=== PATIENT | male | born 1985 | race Caucasian/White ===

== ENCOUNTER 2017-05-03 19:15 | Emergency (ER) | payer SELFPAY ==
--- NOTE | 2017-05-03 21:40 | ED CLINICAL REPORT ---
Clinical Report - Physicians/Mid Levels Located Within [facility] [address] [place] [address] 05/03/2017 19:16 Patient: JENNYFER DE LOS SANTOS Time Seen: 19:23; initial patient contact. Arrived- By private vehicle. Historian- patient. HISTORY OF PRESENT ILLNESS Chief Complaint: ACCIDENTAL INGESTION. This occurred about 2 weeks ago. (Has been taking double his dose of [place] accidently). No toxic symptoms present. No toxic symptoms present. Single drug taken. The symptoms are described as mild. Has not been depressed or upset. No anger, suicidal thoughts, hallucinations or delusions. Not confused or paranoid. Similar symptoms previously: None. Recent medical care: Not recently seen/assessed. REVIEW OF SYSTEMS No headache, dizziness, abdominal pain, vomiting or diarrhea. No decreased vision, double vision or headache. All systems otherwise negative, except as recorded above. PAST HISTORY ( Schizophrenia. Psoriasis.). SOCIAL HISTORY Smoker- current status unknown (electronic cigarrette). History of drug use: marijuana. No alcohol use. Has social support. Has place to stay. ADDITIONAL NOTES The nursing notes have been reviewed. PHYSICAL EXAM Vital Signs: 05/03/2017 19:23 BP: 135/75. HR: 85. RR: 16. O2 saturation: 100%. Temp: 98.1 F. Pain level now: 0/10. Have been reviewed as normal. Appearance: Alert. Oriented X3. No acute distress. ENT: Normal ENT inspection. CVS: Normal heart rate and rhythm. Heart sounds normal. Respiratory: No respiratory distress. Breath sounds normal. Skin: Skin warm and dry. Normal skin color. No rash. Neuro: Alert. Oriented X 3. Mood/affect normal. Speech normal. LABS, X-RAYS, AND EKG Laboratory Tests: UA-Culture if indicated: (ISAAC: 05/03/2017 19:45) ( MsgRcvd 05/03/2017 20:31) Final results Test Result Flag Units (Reference) URINE COLOR YELLOW URINE APPEARANCE CLEAR URINE GLUCOSE NEGATIVE (NEGATIVE) URINE BILIRUBIN NEGATIVE (NEGATIVE) URINE KETONE NEGATIVE (NEGATIVE) URINE SPECIFIC GRAVITY 1.015 (1.010-1.030) URINE PH 7.0 (5.0-8.0) URINE PROTEIN NEGATIVE (NEGATIVE) URINE UROBILINOGEN 0.2 EU/dL (0.2-1.0) URINE NITRITE NEGATIVE (NEGATIVE) URINE BLOOD NEGATIVE (NEGATIVE) URINE [place] ESTERASE NEGATIVE (NEGATIVE) URINE RBC NONE SEEN rbc/hpf (0-1) URINE WBC RARE wbc/hpf (0-1) URINE EPITHELIAL CELLS RARE EPI/hpf (0-5) URINE BACTERIA NONE SEEN (NONE SEEN) URINE COMMENT CULT NOT INDICATED URINE CULTURES ARE SET-UP BASED ON THE FOLLOWING CRITERIA:POSITIVE NITRITEPOSITIVE LEUKOCYTE ESTERASEGREATER THAN 10 WHITE BLOOD CELLSMODERATE (2+) OR GREATER BACTERIA CBC w Diff: (ISAAC: 05/03/2017 19:50) ( [facility] 05/03/2017 20:00) Final results Test Result Flag Units (Reference) WHITE BLOOD COUNT 13.2 H K/uL (4.5-11.5) RED BLOOD COUNT 4.58 M/uL (4.50-5.90) HEMOGLOBIN 14.3 gm/dL (13.5-17.5) HEMATOCRIT 41.8 % (41.0-53.0) MEAN CELL VOLUME 91 fL (80-100) MEAN CORPUSCULAR HGB 31 pg (26-34) MEAN CORPUSCULAR HGB CONC 34 g/dL (31-37) RED CELL DISTRIBUTION WIDTH 12.1 % (11.6-14.8) PLATELET COUNT 246 K/uL (150-400) LYMPH % 17.9 L % (25-40) MONO % 5.6 % (3-14) GRANULOCYTE % 76.5 Urine Drug Screen: (ISAAC: 05/03/2017 19:45) ( [facility] 05/03/2017 20:24) Final results Test Result Flag Units (Reference) AMPHETAMINE/METHAMPHETAMINE NEGATIVE (NEGATIVE) BARBITURATE NEGATIVE (NEGATIVE) BENZODIAZEPINE NEGATIVE (NEGATIVE) CANNABINOID NEGATIVE (NEGATIVE) COCAINE NEGATIVE (NEGATIVE) ECSTASY POSITIVE H (NEGATIVE) METHADONE NEGATIVE (NEGATIVE) OPIATE NEGATIVE (NEGATIVE) The urine drug screen is a qualitative screening test fordrug overdose and abuse. All screen results should beconsidered as presumptive.Drugs screened for are as follows:BenzodiazepinesCocaineAmphetamines/MetamphetaminesTHC (Tetrahydrocannabinol)OpiatesBarbituratesEcstasyMethadonePositive results are unconfirmed. For confirmation, notifythe lab for the specimen to be sent to the reference lab.All confirmations must be performed by a differentmethodology.The ingestion of natural herbal and plant productscontaining Ephedra/Ephedra metabolites can produce in urineone or more substances capable of cross reacting withamphetamine/methamphetamine immunoassays. These testsprovide a preliminary result only. A more specificalternative chemical method must be used to obtain aconfirmed analytical result. [place] Level: (ISAAC: 05/03/2017 19:50) ( [facility] 05/03/2017 20:19) Final results Test Result Flag Units (Reference) LITHIUM 0.9 mmol/L (0.5-1.5) CMP: (ISAAC: 05/03/2017 19:50) ( CagRcvd 05/03/2017 20:34) Final results Test Result Flag Units (Reference) GLUCOSE 109 mg/dL (70-110) BUN 11 mg/dL (7-18) CREATININE 1.1 mg/dL (0.6-1.3) Estimated GFR >60 mL/min Estimated GFR- >60 mL/min Note: Persistent reduction over 3 months in eGFR<60 mL/min/1.73 m2 defines CKD. Patients with eGFR values>=60 mL/min/1.73 m2 may also have CKD if evidence ofpersistent proteinuria. Additional information may be foundat www.kidney.org. SODIUM 140 mmol/L (136-145) POTASSIUM 3.8 mmol/L (3.5-5.1) CHLORIDE 105 mmol/L (98-107) CARBON DIOXIDE 26 mmol/L (21-32) CALCIUM 8.9 mg/dL (8.5-10.1) TOTAL PROTEIN 7.0 g/dL (6.4-8.2) ALBUMIN 3.8 g/dL (3.3-5.0) BILIRUBIN, TOTAL 0.4 mg/dL (0.0-1.0) ALKALINE PHOSPHATASE 63 U/L (46-116) AST (SGOT) 23 U/L (15-37) ALT (SGPT) 49 U/L (12-78) . PROGRESS AND PROCEDURES Disposition: Discharged home in good and improved condition. Condition: good. CLINICAL IMPRESSION Chronic bipolar disorder (With therapeutic [place] level). INSTRUCTIONS Your Current Medications: CONTINUE TAKING THE FOLLOWING MEDICATIONS: BuPROPion HCl Oral. [place] Carbonate ER Oral. OLANZapine Oral. TraZODone HCl Oral. Follow-up: Follow up with your doctor tomorrow. Call for an appointment. Screening today revealed the patient's blood pressure to be in the hypertensive range. The patient should follow up with a primary care provider for blood pressure management. (Electronically signed by Fran Collins Dr. 05/05/2017 0:19)
--- NOTE | 2017-05-03 21:40 | ED NURSING NOTES ---
Clinical Report - Nurses [facility] [address] [place] [address] 05/03/2017 19:16 Patient: JENNYFER DE LOS SANTOS TRIAGE Triage time 19:23. Acuity: LEVEL 3. Chief Complaint: DRUG OVERDOSE (accidental). --19:34 Chevy Brady R.N. 19:23 05/03/17. BP: 135/75. HR: 85. RR: 16. O2 saturation: 100%. Temp: 98.1 F. Pain level now: 0/10. --19:34 Chevy Brady R.N. Weight: 81.6 kg. Height/Length: 69 inches. BMI: 26.6. --19:25 Chevy Brady R.N. Medications [place] Carbonate ER Oral. --19:30 Chevy Brady R.N. BuPROPion HCl Oral. --19:30 Chevy Brady R.N. TraZODone HCl Oral. --19:30 Chevy Brady R.N. OLANZapine Oral. --19:31 Chevy Brady R.N. Medication/allergy information source: the patient. --19:34 Chevy Brady R.N. Allergies No Known Drug Allergy. --19:31 Chevy Brady R.N. History Arrived by private vehicle. Historian: patient. Accompanied by brother. ( Has been taking 2,400 mg of [place] daily in the last 2 weeks as he got confused as when he was [facility] custody he was being given 2 tablets of [place] 2 x day which he think was 300 mg capsules. Noticed increasing fatigued and tired and sleepy.). This occurred 2 weeks. Treatment CAUSTIC STRENGTH INSPECTOR: None. SURGERY HX: No history of previous surgery. SOCIAL HX: Smoker- current status unknown (electronic cigarrettes). History of occasional drug use: marijuana. --19:34 Chevy Brady R.N. PROBLEMS: Schizophrenia. Psoriasis. --19:32 Chevy Brady R.N. Interventions ID band on patient. To room. --19:34 Chevy Brady R.N. PHYSICAL ASSESSMENT Ambulatory to room. GENERAL / NEURO / PSYCH: Alert. Oriented X 4. Appears in no acute distress. Patient appears calm and cooperative. Speech within normal limits. RESPIRATORY: Respirations not labored. Breath sounds within normal limits. CVS: Normal sinus rhythm noted. Capillary refill less than 2 seconds. GI / : Abdomen soft and nontender. Bowel sounds within normal limits. SKIN: Skin intact. Skin is warm and dry. Skin color is within normal limits. Affect appears within normal limits. --19:34 Chevy Brady R.N. NURSING PROGRESS NOTES Cardiac rhythm: normal sinus rhythm. Head of bed elevated. Patient identifiers checked. Call light placed in reach. Side rails up x 1. Bed placed in lowest position. Brakes of bed on. Patient ready for evaluation- ED physician notified. --19:35 Chevy Brady R.N. 19:50 05/03/2017 Site #1 started via IV in the right antecubital space with an 20g angiocath; one attempt. Blood drawn: rainbow set. Labeled in the presence of the patient and sent to the lab. Saline lock flushed with 10 mL saline. --19:50 Chevy Brady R.N. 19:51 05/03/2017 Started IV Fluids IV NS (Saline); bolus of 1000 mL over 1 hour(s) via site #1 via IV pump. Allergies verified and confirmed 5 rights. IV patency established. IV site checked: no pain, redness, or swelling. IV flushed thoroughly pre- and post-medication administration. --19:51 Chevy Brady R.N. Cardiac rhythm: normal sinus rhythm. The patient is calm and resting quietly. Overall patient status is the same- he states feels the same. GENERAL / NEURO / PSYCH: Patient is calm and cooperative. Alert. Oriented X 4. RESPIRATORY: No respiratory distress. GI / : No vomiting noted. SKIN: Skin is warm and dry. Skin color within normal limits. --20:12 Chevy Brady R.N. 20:11 05/03/17. BP: 129/75. HR: 78. RR: 14. O2 saturation: 96%. Pain level now: 0/10. --20:12 Chevy Brady R.N. 20:55 05/03/2017 IV Fluids IV NS Discontinued: bag #1 infused. Total amount infused: 1000 mL. IV patency established. IV site checked: no pain, redness, or swelling. IV flushed thoroughly. --20:55 Chevy Brady R.N. 21:02 05/03/17. BP: 142/72 (regular adult cuff) taken on the left arm, via an automated monitor, while lying. HR: 91. O2 saturation: 97% on room air. Temp: 98.9 F. --21:03 Candice Webster. DISPOSITION / DISCHARGE Cardiac rhythm not normal sinus rhythm. Condition at departure: improved. No learning barriers present. Discharge instructions provided and reviewed with the patient (brother). Reviewed medication(s) side effects, precautions, dosing and course information. Reviewed referral to a primary care physician for followup. Patient verbalized understanding. Written instructions provided in Romansh. Verbalized understanding (brother). The patient was discharged home and accompanied by family. He left the Emergency Department ambulatory and via private vehicle. Family member driving. --21:53 Chevy Brady R.N. 21:51 05/03/17. BP: 123/79. HR: 76. RR: 16. O2 saturation: 100%. Temp: 97.9 F. Pain level now: 0/10. --21:53 Chevy Brady R.N. Departure time: 21:53. --21:53 Chevy Brady R.N. Locked/Released at 05/03/2017 21:53 by Chevy Brady R.N.
--- NOTE | 2017-05-03 21:40 | ED ORDER SUMMARY ---
..... Patient: JENNYFER DE LOS SANTOS OrderSheet [facility] VisitID: [id number] [place] [address] 31y, M Registration Date/Time: 05/03/2017 ORDER SHEET Weight: 81.6 kg Allergies: No Known Drug Allergy GENERAL ORDERS: CBC w Diff Urgent (:05/03/2017 Jordon Issa) (Ack 19:27 Talhaa ER Tech1) (19:50 Massiel R.N.) CMP Urgent (:05/03/2017 Jordon Issa) (Ack 19:27 Cari ER Tech1) (19:50 Massiel R.N.) UA-Culture if indicated Urgent (:05/03/2017 Jordon Issa) (Ack 19:27 Cari ER Tech1) (19:50 Massiel R.N.) Urine Drug Screen Urgent (:05/03/2017 Jordon Issa) (Ack 19:27 EDVINurca ER Tech1) (19:50 Massiel R.N.) [place] Level Urgent (:05/03/2017 Jordon Issa) (Ack 19:27 Cari ER Tech1) (19:50 Massiel R.N.) MEDICATION ORDERS: IV FLUIDS: IV NS : initial bolus none -, then 1000 mL/hr for X1 (NOW) (:05/03/2017 Jordon Issa) (Ack 19:36 Massiel R.N.) (19:51 Massiel R.N.) ORDER SHEET NOTES: [Electronically signed by Chevy Brady R.N. (21:53 05/03/2017)] [Electronically signed by Fran Collins Dr. (00:19 05/05/2017)] [Electronically locked/signed by Chevy Brady R.N. (21:53 05/03/2017)]
--- NOTE | 2017-05-03 21:40 | ED ORDER SUMMARY ---
..... Patient: JENNYFER DE LOS SANTOS OrderSheet [facility] VisitID: [id number] [place] [address] 31y, M Registration Date/Time: 05/03/2017 ORDER SHEET Weight: 81.6 kg Allergies: No Known Drug Allergy GENERAL ORDERS: CBC w Diff Urgent (:05/03/2017 Jordon Issa) (Ack 19:27 Talhaa ER Tech1) (19:50 Massiel R.N.) CMP Urgent (:05/03/2017 Jordon Issa) (Ack 19:27 Cari ER Tech1) (19:50 Massiel R.N.) UA-Culture if indicated Urgent (:05/03/2017 Jordon Issa) (Ack 19:27 Cari ER Tech1) (19:50 Massiel R.N.) Urine Drug Screen Urgent (:05/03/2017 Jordon Issa) (Ack 19:27 EDVINurca ER Tech1) (19:50 Massiel R.N.) [place] Level Urgent (:05/03/2017 Jordon Issa) (Ack 19:27 Cari ER Tech1) (19:50 Massiel R.N.) MEDICATION ORDERS: IV FLUIDS: IV NS : initial bolus none -, then 1000 mL/hr for X1 (NOW) (:05/03/2017 Jordon Issa) (Ack 19:36 Massiel R.N.) (19:51 Massiel R.N.) ORDER SHEET NOTES: [Electronically signed by Chevy Brady R.N. (21:53 05/03/2017)] [Electronically signed by Fran Collins Dr. (00:19 05/05/2017)] [Electronically locked/signed by Chevy Brady R.N. (21:53 05/03/2017)]
--- NOTE | 2017-05-03 21:40 | ED NURSING NOTES ---
Clinical Report - Nurses [facility] [address] [place] [address] 05/03/2017 19:16 Patient: JENNYFER DE LOS SANTOS TRIAGE Triage time 19:23. Acuity: LEVEL 3. Chief Complaint: DRUG OVERDOSE (accidental). --19:34 Chevy Brady R.N. 19:23 05/03/17. BP: 135/75. HR: 85. RR: 16. O2 saturation: 100%. Temp: 98.1 F. Pain level now: 0/10. --19:34 Chevy Brady R.N. Weight: 81.6 kg. Height/Length: 69 inches. BMI: 26.6. --19:25 Chevy Brady R.N. Medications [place] Carbonate ER Oral. --19:30 Chevy Brady R.N. BuPROPion HCl Oral. --19:30 Chevy Brady R.N. TraZODone HCl Oral. --19:30 Chevy Brady R.N. OLANZapine Oral. --19:31 Chevy Brady R.N. Medication/allergy information source: the patient. --19:34 Chevy Brady R.N. Allergies No Known Drug Allergy. --19:31 Chevy Brady R.N. History Arrived by private vehicle. Historian: patient. Accompanied by brother. ( Has been taking 2,400 mg of [place] daily in the last 2 weeks as he got confused as when he was in [facility] custody he was being given 2 tablets of [place] 2 x day which he think was 300 mg capsules. Noticed increasing fatigued and tired and sleepy.). This occurred 2 weeks. Treatment FORM BUILDER: None. SURGERY HX: No history of previous surgery. SOCIAL HX: Smoker- current status unknown (electronic cigarrettes). History of occasional drug use: marijuana. --19:34 Chevy Brady R.N. PROBLEMS: Schizophrenia. Psoriasis. --19:32 Chevy Brady R.N. Interventions ID band on patient. To room. --19:34 Chevy Brady R.N. PHYSICAL ASSESSMENT Ambulatory to room. GENERAL / NEURO / PSYCH: Alert. Oriented X 4. Appears in no acute distress. Patient appears calm and cooperative. Speech within normal limits. RESPIRATORY: Respirations not labored. Breath sounds within normal limits. CVS: Normal sinus rhythm noted. Capillary refill less than 2 seconds. GI / : Abdomen soft and nontender. Bowel sounds within normal limits. SKIN: Skin intact. Skin is warm and dry. Skin color is within normal limits. Affect appears within normal limits. --19:34 Chevy Brady R.N. NURSING PROGRESS NOTES Cardiac rhythm: normal sinus rhythm. Head of bed elevated. Patient identifiers checked. Call light placed in reach. Side rails up x 1. Bed placed in lowest position. Brakes of bed on. Patient ready for evaluation- ED physician notified. --19:35 Chevy Brady R.N. 19:50 05/03/2017 Site #1 started via IV in the right antecubital space with an 20g angiocath; one attempt. Blood drawn: rainbow set. Labeled in the presence of the patient and sent to the lab. Saline lock flushed with 10 mL saline. --19:50 Chevy Brady R.N. 19:51 05/03/2017 Started IV Fluids IV NS (Saline); bolus of 1000 mL over 1 hour(s) via site #1 via IV pump. Allergies verified and confirmed 5 rights. IV patency established. IV site checked: no pain, redness, or swelling. IV flushed thoroughly pre- and post-medication administration. --19:51 Chevy Brady R.N. Cardiac rhythm: normal sinus rhythm. The patient is calm and resting quietly. Overall patient status is the same- he states feels the same. GENERAL / NEURO / PSYCH: Patient is calm and cooperative. Alert. Oriented X 4. RESPIRATORY: No respiratory distress. GI / : No vomiting noted. SKIN: Skin is warm and dry. Skin color within normal limits. --20:12 Cheyv Brady R.N. 20:11 05/03/17. BP: 129/75. HR: 78. RR: 14. O2 saturation: 96%. Pain level now: 0/10. --20:12 Chevy Brady R.N. 20:55 05/03/2017 IV Fluids IV NS Discontinued: bag #1 infused. Total amount infused: 1000 mL. IV patency established. IV site checked: no pain, redness, or swelling. IV flushed thoroughly. --20:55 Chevy Brady R.N. 21:02 05/03/17. BP: 142/72 (regular adult cuff) taken on the left arm, via an automated monitor, while lying. HR: 91. O2 saturation: 97% on room air. Temp: 98.9 F. --21:03 Candice Webster. DISPOSITION / DISCHARGE Cardiac rhythm not normal sinus rhythm. Condition at departure: improved. No learning barriers present. Discharge instructions provided and reviewed with the patient (brother). Reviewed medication(s) side effects, precautions, dosing and course information. Reviewed referral to a primary care physician for followup. Patient verbalized understanding. Written instructions provided in [place]. Verbalized understanding (brother). The patient was discharged home and accompanied by family. He left the Emergency Department ambulatory and via private vehicle. Family member driving. --21:53 Chevy Brady R.N. 21:51 05/03/17. BP: 123/79. HR: 76. RR: 16. O2 saturation: 100%. Temp: 97.9 F. Pain level now: 0/10. --21:53 Chevy Brady R.N. Departure time: 21:53. --21:53 Chevy Brady R.N. Locked/Released at 05/03/2017 21:53 by Chevy Brady R.N.
--- NOTE | 2017-05-03 21:40 | ED CLINICAL REPORT ---
Clinical Report - Physicians/Mid Levels [facility] [address] [place] [address] 05/03/2017 19:16 Patient: JENNYFER DE LOS SANTOS Time Seen: 19:23; initial patient contact. Arrived- By private vehicle. Historian- patient. HISTORY OF PRESENT ILLNESS Chief Complaint: ACCIDENTAL INGESTION. This occurred about 2 weeks ago. (Has been taking double his dose of [place] accidently). No toxic symptoms present. No toxic symptoms present. Single drug taken. The symptoms are described as mild. Has not been depressed or upset. No anger, suicidal thoughts, hallucinations or delusions. Not confused or paranoid. Similar symptoms previously: None. Recent medical care: Not recently seen/assessed. REVIEW OF SYSTEMS No headache, dizziness, abdominal pain, vomiting or diarrhea. No decreased vision, double vision or headache. All systems otherwise negative, except as recorded above. PAST HISTORY ( Schizophrenia. Psoriasis.). SOCIAL HISTORY Smoker- current status unknown (electronic cigarrette). History of drug use: marijuana. No alcohol use. Has social support. Has place to stay. ADDITIONAL NOTES The nursing notes have been reviewed. PHYSICAL EXAM Vital Signs: 05/03/2017 19:23 BP: 135/75. HR: 85. RR: 16. O2 saturation: 100%. Temp: 98.1 F. Pain level now: 0/10. Have been reviewed as normal. Appearance: Alert. Oriented X3. No acute distress. ENT: Normal ENT inspection. CVS: Normal heart rate and rhythm. Heart sounds normal. Respiratory: No respiratory distress. Breath sounds normal. Skin: Skin warm and dry. Normal skin color. No rash. Neuro: Alert. Oriented X 3. Mood/affect normal. Speech normal. LABS, X-RAYS, AND EKG Laboratory Tests: UA-Culture if indicated: (ISAAC: 05/03/2017 19:45) ( MsgRcvd 05/03/2017 20:31) Final results Test Result Flag Units (Reference) URINE COLOR YELLOW URINE APPEARANCE CLEAR URINE GLUCOSE NEGATIVE (NEGATIVE) URINE BILIRUBIN NEGATIVE (NEGATIVE) URINE KETONE NEGATIVE (NEGATIVE) URINE SPECIFIC GRAVITY 1.015 (1.010-1.030) URINE PH 7.0 (5.0-8.0) URINE PROTEIN NEGATIVE (NEGATIVE) URINE UROBILINOGEN 0.2 EU/dL (0.2-1.0) URINE NITRITE NEGATIVE (NEGATIVE) URINE BLOOD NEGATIVE (NEGATIVE) URINE [place] ESTERASE NEGATIVE (NEGATIVE) URINE RBC NONE SEEN rbc/hpf (0-1) URINE WBC RARE wbc/hpf (0-1) URINE EPITHELIAL CELLS RARE EPI/hpf (0-5) URINE BACTERIA NONE SEEN (NONE SEEN) URINE COMMENT CULT NOT INDICATED URINE CULTURES ARE SET-UP BASED ON THE FOLLOWING CRITERIA:POSITIVE NITRITEPOSITIVE LEUKOCYTE ESTERASEGREATER THAN 10 WHITE BLOOD CELLSMODERATE (2+) OR GREATER BACTERIA CBC w Diff: (ISAAC: 05/03/2017 19:50) ( [facility] 05/03/2017 20:00) Final results Test Result Flag Units (Reference) WHITE BLOOD COUNT 13.2 H K/uL (4.5-11.5) RED BLOOD COUNT 4.58 M/uL (4.50-5.90) HEMOGLOBIN 14.3 gm/dL (13.5-17.5) HEMATOCRIT 41.8 % (41.0-53.0) MEAN CELL VOLUME 91 fL (80-100) MEAN CORPUSCULAR HGB 31 pg (26-34) MEAN CORPUSCULAR HGB CONC 34 g/dL (31-37) RED CELL DISTRIBUTION WIDTH 12.1 % (11.6-14.8) PLATELET COUNT 246 K/uL (150-400) LYMPH % 17.9 L % (25-40) MONO % 5.6 % (3-14) GRANULOCYTE % 76.5 Urine Drug Screen: (ISAAC: 05/03/2017 19:45) ( [facility] 05/03/2017 20:24) Final results Test Result Flag Units (Reference) AMPHETAMINE/METHAMPHETAMINE NEGATIVE (NEGATIVE) BARBITURATE NEGATIVE (NEGATIVE) BENZODIAZEPINE NEGATIVE (NEGATIVE) CANNABINOID NEGATIVE (NEGATIVE) COCAINE NEGATIVE (NEGATIVE) ECSTASY POSITIVE H (NEGATIVE) METHADONE NEGATIVE (NEGATIVE) OPIATE NEGATIVE (NEGATIVE) The urine drug screen is a qualitative screening test fordrug overdose and abuse. All screen results should beconsidered as presumptive.Drugs screened for are as follows:BenzodiazepinesCocaineAmphetamines/MetamphetaminesTHC (Tetrahydrocannabinol)OpiatesBarbituratesEcstasyMethadonePositive results are unconfirmed. For confirmation, notifythe lab for the specimen to be sent to the reference lab.All confirmations must be performed by a differentmethodology.The ingestion of natural herbal and plant productscontaining Ephedra/Ephedra metabolites can produce in urineone or more substances capable of cross reacting withamphetamine/methamphetamine immunoassays. These testsprovide a preliminary result only. A more specificalternative chemical method must be used to obtain aconfirmed analytical result. [place] Level: (ISAAC: 05/03/2017 19:50) ( [facility] 05/03/2017 20:19) Final results Test Result Flag Units (Reference) LITHIUM 0.9 mmol/L (0.5-1.5) CMP: (ISAAC: 05/03/2017 19:50) ( WygRcvd 05/03/2017 20:34) Final results Test Result Flag Units (Reference) GLUCOSE 109 mg/dL (70-110) BUN 11 mg/dL (7-18) CREATININE 1.1 mg/dL (0.6-1.3) Estimated GFR >60 mL/min Estimated GFR- >60 mL/min Note: Persistent reduction over 3 months in eGFR<60 mL/min/1.73 m2 defines CKD. Patients with eGFR values>=60 mL/min/1.73 m2 may also have CKD if evidence ofpersistent proteinuria. Additional information may be foundat www.kidney.org. SODIUM 140 mmol/L (136-145) POTASSIUM 3.8 mmol/L (3.5-5.1) CHLORIDE 105 mmol/L (98-107) CARBON DIOXIDE 26 mmol/L (21-32) CALCIUM 8.9 mg/dL (8.5-10.1) TOTAL PROTEIN 7.0 g/dL (6.4-8.2) ALBUMIN 3.8 g/dL (3.3-5.0) BILIRUBIN, TOTAL 0.4 mg/dL (0.0-1.0) ALKALINE PHOSPHATASE 63 U/L (46-116) AST (SGOT) 23 U/L (15-37) ALT (SGPT) 49 U/L (12-78) . PROGRESS AND PROCEDURES Disposition: Discharged home in good and improved condition. Condition: good. CLINICAL IMPRESSION Chronic bipolar disorder (With therapeutic [place] level). INSTRUCTIONS Your Current Medications: CONTINUE TAKING THE FOLLOWING MEDICATIONS: BuPROPion HCl Oral. [place] Carbonate ER Oral. OLANZapine Oral. TraZODone HCl Oral. Follow-up: Follow up with your doctor tomorrow. Call for an appointment. Screening today revealed the patient's blood pressure to be in the hypertensive range. The patient should follow up with a primary care provider for blood pressure management. (Electronically signed by Fran Collins Dr. 05/05/2017 0:19)
--- NOTE | 2017-05-05 00:19 | ED MED RECONCILIATION SUMMARY ---
Patient: JENNYFER DE LOS SANTOS Medication Reconciliation Report [facility] VisitID: [id number] [address] [place] [address] 31y, M Registration Date/Time: 05/03/2017 Weight: 81.6 kg Height/Length: 69 in. BMI: 26.6 ALLERGIES: No Known Drug Allergy The patient's Home Medications are listed below: CONTINUE TAKING THE FOLLOWING MEDICATIONS: BuPROPion HCl Oral [place] Carbonate ER Oral OLANZapine Oral TraZODone HCl Oral The source(s) of the original Home Medication information: patient The following Medications were given to the patient in the Emergency Department: IV NS IV Fluids bolus 1000 mL over 1 hour(s), administered: 05/03/2017 7:51:00 PM The following Medications were prescribed to the patient: None.
--- NOTE | 2017-05-05 00:19 | ED DISCHARGE INSTRUCTIONS ---
Patient: JENNYFER DE LOS SANTOS General Instructions [facility] VisitID: [id number] [place] [address] 31y, M Registration Date/Time: 05/03/2017 Chronic bipolar disorder (With therapeutic [place] level). INSTRUCTIONS Your Current Medications: CONTINUE TAKING THE FOLLOWING MEDICATIONS: BuPROPion HCl Oral. [place] Carbonate ER Oral. OLANZapine Oral. TraZODone HCl Oral. Follow-up: Follow up with your doctor tomorrow. Call for an appointment. Screening today revealed the patient's blood pressure to be in the hypertensive range. The patient should follow up with a primary care provider for blood pressure management. (Electronically signed by Fran Collins Dr. 05/05/2017 0:19)
--- NOTE | 2017-05-05 00:19 | ED MAR SUMMARY ---
..... Medication Administration Record [facility] [address] [place] [address] Patient: JENNYFER DE LOS SANTOS Visit ID: [id number] 31y, M Weight: 81.6 kg Height/Length: 69 in BMI: 26.6 ALLERGIES: No Known Drug Allergy Start 19:51 05/03/2017 Chevy Brady R.N., Stop 20:55 05/03/2017 Chevy Brady R.N. Medication Administered: IV NS (SALINE), Dose: IV Fluids, Bolus: 1000 mL over 1 hour(s), Site: #1 right AC. Medication Ordered: IV NS : initial bolus none -, then 1000 mL/hr for X1 (NOW).
--- NOTE | 2017-05-05 00:19 | ED MED RECONCILIATION SUMMARY ---
Patient: JENNYFER DE LOS SANTOS Medication Reconciliation Report [facility] VisitID: [id number] [address] [place] [address] 31y, M Registration Date/Time: 05/03/2017 Weight: 81.6 kg Height/Length: 69 in. BMI: 26.6 ALLERGIES: No Known Drug Allergy The patient's Home Medications are listed below: CONTINUE TAKING THE FOLLOWING MEDICATIONS: BuPROPion HCl Oral [place] Carbonate ER Oral OLANZapine Oral TraZODone HCl Oral The source(s) of the original Home Medication information: patient The following Medications were given to the patient in the Emergency Department: IV NS IV Fluids bolus 1000 mL over 1 hour(s), administered: 05/03/2017 7:51:00 PM The following Medications were prescribed to the patient: None.
--- NOTE | 2017-05-05 00:19 | ED DISCHARGE INSTRUCTIONS ---
Patient: JENNYFER DE LOS SANTOS General Instructions [facility] VisitID: [id number] [place] [address] 31y, M Registration Date/Time: 05/03/2017 Chronic bipolar disorder (With therapeutic [place] level). INSTRUCTIONS Your Current Medications: CONTINUE TAKING THE FOLLOWING MEDICATIONS: BuPROPion HCl Oral. [place] Carbonate ER Oral. OLANZapine Oral. TraZODone HCl Oral. Follow-up: Follow up with your doctor tomorrow. Call for an appointment. Screening today revealed the patient's blood pressure to be in the hypertensive range. The patient should follow up with a primary care provider for blood pressure management. (Electronically signed by Fran Collins Dr. 05/05/2017 0:19)
--- NOTE | 2017-05-05 00:19 | ED MAR SUMMARY ---
..... Medication Administration Record [facility] [address] [place] [address] Patient: JENNYFER DE LOS SANTOS Visit ID: [id number] 31y, M Weight: 81.6 kg Height/Length: 69 in BMI: 26.6 ALLERGIES: No Known Drug Allergy Start 19:51 05/03/2017 Chevy Brady R.N., Stop 20:55 05/03/2017 Chevy Brady R.N. Medication Administered: IV NS (SALINE), Dose: IV Fluids, Bolus: 1000 mL over 1 hour(s), Site: #1 right AC. Medication Ordered: IV NS : initial bolus none -, then 1000 mL/hr for X1 (NOW).
== END 2017-05-03 21:53 | disposition home or self-care (01) ==
LOC: ED SRH 19:15
DX: F31.89 Other bipolar disorder (principal); Z79.899 Other long term (current) drug therapy
CPT/HCPCS: 90004; 90100; 91589; 92760; 92761; 92762; 92763; 92764; 92765; 92766; 92767; 95059